=== PATIENT | female | born 1950 | race Two or more races ===

== ENCOUNTER 2020-06-30 19:37 | Emergency (ER) | payer OTHER ==
[~2020-06-30] VITALS: Ht 149.9 cm; Wt 51.3 kg
[2020-06-30] MEDS ORDERED: LIPITOR40 M1 (19:51)
== END 2020-07-01 00:22 | disposition home or self-care (01) ==
LOC: ER 19:37
DX: G43.809 Other migraine, not intractable, without status migrainosus (principal); G44.89 Other headache syndrome; G51.0 Bell's palsy; R11.2 Nausea with vomiting, unspecified; R53.81 Other malaise

== ENCOUNTER 2021-11-10 18:57 | Emergency (ER) | payer OTHER ==
[~2021-11-10] VITALS: Ht 152.4 cm; Wt 48.1 kg
[~2021-11-10 18:57] MED LIST: LIPITOR40 M1
[2021-11-10] MEDS ORDERED: ZITHROMAX500 MG PO (22:53)
[2021-11-10] MEDS ORDERED: MEDROLPACK PO (22:53)
[2021-11-10] MEDS ORDERED: FLONASE ALLERG9.9 ML NASAL (22:53)
[2021-11-10] MEDS ORDERED: TUSSIN DM LIQU118 ML PO (22:55)
== END 2021-11-10 23:38 | disposition home or self-care (01) ==
LOC: ER 18:57
DX: U07.1 COVID-19 (principal); J06.9 Acute upper respiratory infection, unspecified